=== PATIENT | male | born 1970 | race American Indian/Alaskan Native ===

== ENCOUNTER 2017-01-22 15:56 | Emergency (ER) | payer SELFPAY ==
[2017-01-22] MEDS ORDERED: NORCO 7.5/325 PO ONE (17:07)
[2017-01-22] MEDS ORDERED: DECADRON IM ONE (17:08)
[2017-01-22] MEDS ORDERED: FLEXERIL PO ONE (17:08)
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
[2017-01-22 17:40] LABS: Bilirubin,Urine NEG (Negative); Blood,Urine NEG (Negative); Ketones,Urine NEG (Negative); Leukocyte Esterase,Urine NEG (Negative); Mucus,Urine FEW /HPF; Nitrite,Urine NEG (Negative); Protein,Urine <15 mg/dL mg/dL (Negative); Urobilinogen,Urine < 2.0 mg/dL (<2.0); WBC,Urine < 1.0 /HPF (0.0-6.0)
[2017-01-22] MEDS ORDERED: CATAPRES PO ONE (18:27)
[2017-01-22] MEDS ORDERED: CATAPRES ONE (18:28)
[2017-01-22 19:20] VITALS: BP 146/99
== END 2017-01-22 19:14 | disposition home or self-care (01) ==
LOC: ED 15:56
DX: M54.9 Dorsalgia, unspecified (principal); E66.9 Obesity, unspecified; I10 Essential (primary) hypertension; E11.9 Type 2 diabetes mellitus without complications
CPT/HCPCS: 81001; 96372; 99283; J1100